=== PATIENT | female | born 1980 | race Caucasian/White ===

== ENCOUNTER → 2018-06-15 16:40 | Observation (INO) ==
[2018-06-15 15:41] LABS: Basophils % 0.3 %; Eosinophils # 0.1 K/mcL (0.0-0.6); Eosinophils % 0.6 %; Hematocrit 35.7 % (35.3-44.9); Hemoglobin 11.4 g/dL (11.5-15.4); Immature Granulocytes % 0.5 % (0-4); Lymphocytes # 1.7 K/mcL (0.6-4.6); Lymphocytes % 16.3 %; Mean Corpuscular HGB Conc 31.9 g/dL (31.6-35.5); Mean Corpuscular Hemoglobin 30.2 pg (28.0-33.3); Mean Corpuscular Volume 94.4 fL (83.0-100.0); Mean Platelet Volume 11.5 fL (9.4-12.4); Monocytes # 0.7 K/mcL (0.0-1.3); Monocytes % 6.7 %; Neutrophils # 7.8 K/mcL (1.6-8.9); Platelet Count 244 K/mcL (140-400); Red Blood Count 3.78 M/mcL (3.82-4.97); Red Cell Distribution Width 13.8 % (11.5-14.5); Segmented Neutrophils % 75.6 %
[2018-06-15 15:55] LABS: Alanine Aminotransferase 11 Units/L (7-52); Aspartate Amino Transferase 11 Units/L (13-39); BUN/Creatinine Ratio 18 (6-26); Blood Urea Nitrogen 12 mg/dL (6-20); Lactate Dehydrogenase 137 Units/L (140-271); Uric Acid 6.8 mg/dL (2.3-7.6); eGFR For Non-African Americans > 60 (> 60)
[2018-06-15 16:04] LABS: Amphetamine Screen,Urine Negative ng/mL (Cutoff=1000); Barbiturate Screen,Urine Negative ng/mL (Cutoff=200); Benzodiazepines Screen,Urine Negative ng/mL (Cutoff=200); Cannabinoid Screen,Urine Negative ng/mL (Cutoff = 50); Cocaine Screen,Urine Negative ng/mL (Cutoff= 300); Creatinine,Urine 168 mg/dL; Opiate Screen,Urine Negative ng/mL (Cutoff=300); Phencyclidine Screen,Urine Negative ng/mL (Cutoff=25); Protein/Creatinine Ratio,Urine 0.08 mg/mg (0.00-0.20)
--- NOTE | 2018-06-15 16:31 | Discharge Summary ---
Date of Encounter: 06/15/18 Time of Encounter: 16:32 - Discharge Diagnosis (1) 37 weeks gestation of Priority: Primary Status: Acute Comments: Follow-up with Dr. Arriola as scheduled Labor precautions discussed Discharge home (2) RUQ abdominal pain Priority: Secondary Status: Acute Comments: Maintains resolved (3) NST (non-stress test) reactive on surveillance Priority: Secondary Status: Acute (4) Vision changes Priority: Secondary Status: Acute Comments: Resolved spontaneously - Discharge Medications Home Medications: Pnv#75/Iron Fum/FA/Om3/Dha/Epa [Daily Combo Pack] 1 tab PO DAILY 03/08/18 [History] Colace 2 pack PO DAILY 06/15/18 [History] Novolin R 44 units SQ BID 06/15/18 [History] Novolog 24 units SQ DAILY 06/15/18 [History] Novolog 26 units SQ DAILY 06/15/18 [History] Allergies/Adverse Reactions: Allergy/AdvReac Type Severity Reaction Status Date / Time No Known Allergies Allergy Verified 03/08/18 00:46 Data Procedures and tests throughout hospitalization: Laboratory Tests 06/15/18 06/15/18 06/15/18 15:24 15:24 15:24 WBC 10.3 RBC 3.78 L Hgb 11.4 L Hct 35.7 MCV 94.4 MCH 30.2 MCHC 31.9 RDW 13.8 Plt Count 244 MPV 11.5 Immature Gran % 0.5 Seg Neutrophils % 75.6 Lymphocytes % 16.3 Monocytes % 6.7 Eosinophils % 0.6 Basophils % 0.3 Neutrophils # 7.8 Lymphocytes # 1.7 Monocytes # 0.7 Eosinophils # 0.1 Basophils # 0.0 BUN 12 Creatinine 0.67 Est GFR ( Amer) > 60 Est GFR (Non-Af Amer) > 60 BUN/Creatinine Ratio 18 Uric Acid 6.8 AST 11 L ALT 11 Lactate Dehydrogenase 137 L Urine Creatinine 168 Protein/Creatinin Ratio 0.08 Urine Total Protein 14 Urine Opiates Screen Negative Ur Barbiturates Screen Negative Ur Phencyclidine Scrn Negative Ur Amphetamines Screen Negative U Benzodiazepines Scrn Negative Urine Cocaine Screen Negative U Marijuana (THC) Screen Negative Ur Drug Screen Interp See Below Hep Bs Antigen 06/15/18 15:24 WBC RBC Hgb Hct MCV MCH MCHC RDW Plt Count MPV Immature Gran % Seg Neutrophils % Lymphocytes % Monocytes % Eosinophils % Basophils % Neutrophils # Lymphocytes # Monocytes # Eosinophils # Basophils # BUN Creatinine Est GFR ( Amer) Est GFR (Non-Af Amer) BUN/Creatinine Ratio Uric Acid AST ALT Lactate Dehydrogenase Urine Creatinine Protein/Creatinin Ratio Urine Total Protein Urine Opiates Screen Ur Barbiturates Screen Ur Phencyclidine Scrn Ur Amphetamines Screen U Benzodiazepines Scrn Urine Cocaine Screen U Marijuana (THC) Screen Ur Drug Screen Interp Hep Bs Antigen Nonreactive Labs on day of discharge: Labs from last 24 hours 06/15/18 06/15/18 06/15/18 15:24 15:24 15:24 WBC 10.3 RBC 3.78 L Hgb 11.4 L Hct 35.7 MCV 94.4 MCH 30.2 MCHC 31.9 RDW 13.8 Plt Count 244 MPV 11.5 Immature Gran % 0.5 Seg Neutrophils % 75.6 Lymphocytes % 16.3 Monocytes % 6.7 Eosinophils % 0.6 Basophils % 0.3 Neutrophils # 7.8 Lymphocytes # 1.7 Monocytes # 0.7 Eosinophils # 0.1 Basophils # 0.0 BUN 12 Creatinine 0.67 Est GFR ( Amer) > 60 Est GFR (Non-Af Amer) > 60 BUN/Creatinine Ratio 18 Uric Acid 6.8 AST 11 L ALT 11 Lactate Dehydrogenase 137 L Urine Creatinine Protein/Creatinin Ratio Urine Total Protein Urine Opiates Screen Ur Barbiturates Screen Ur Phencyclidine Scrn Ur Amphetamines Screen U Benzodiazepines Scrn Urine Cocaine Screen U Marijuana (THC) Screen Ur Drug Screen Interp Hep Bs Antigen Nonreactive 06/15/18 15:24 WBC RBC Hgb Hct MCV MCH MCHC RDW Plt Count MPV Immature Gran % Seg Neutrophils % Lymphocytes % Monocytes % Eosinophils % Basophils % Neutrophils # Lymphocytes # Monocytes # Eosinophils # Basophils # BUN Creatinine Est GFR ( Amer) Est GFR (Non-Af Amer) BUN/Creatinine Ratio Uric Acid AST ALT Lactate Dehydrogenase Urine Creatinine 168 Protein/Creatinin Ratio 0.08 Urine Total Protein 14 Urine Opiates Screen Negative Ur Barbiturates Screen Negative Ur Phencyclidine Scrn Negative Ur Amphetamines Screen Negative U Benzodiazepines Scrn Negative Urine Cocaine Screen Negative U Marijuana (THC) Screen Negative Ur Drug Screen Interp See Below Hep Bs Antigen Date of admission: 06/15/18 14:52 Primary care physician: Dipti Garber Discharging clinician: Pricilla Alexander Anticipated date of discharge: 06/15/18 - Patient Status Disposition: Home, Self-Care Condition: Good Functional capacity at discharge: independent ambulation Overall status at discharge: patient is progressing back to baseline - Discharge Instructions Follow Up With: Dipti Garber MD [Primary Care Provider] - Parker Arriola MD [Partnered Physician] - - Diet and Activity Activity: increase activity as tolerated Diet: regular diet 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 Patient was monitored in labor and delivery for a few hours. All [facility] labs within normal - consult with Dr. Boss and Dr. Arriola. Patient discharged home with instructions for follow-up Time Attestation: Total time spent providing and/or coordinating discharge services: Time Spent: Less than 30 minutes Exam - Constitutional General appearance IM: A&O X 3 - Respiratory Respiratory exam: Present: CTAB - Cardiovascular Cardiovascular exam IM: Present: RRR, +S1, +S2 - GI/Abdominal GI/Abdominal exam IM: normal bowel sounds, no peritoneal signs - Rectal Rectal exam: deferred - Uterine Tone: Firm - Extremities Exam Extremities exam IM: Present: normal capillary refill, normal inspection, radial pulses palpable and symmetrical - Neurological Exam Neurological exam: alert, CN II-XII intact, normal gait, oriented X3, reflexes normal, no focal deficits, strengths equal and symetr throughout - VTE Reasons for not Prescribing Prophylaxis: Treatment not Indicated - Low risk for VTE
== END | disposition home or self-care (01) ==
LOC: 1NENULAB
PROVIDERS: ADMIT Advanced Practice Midwife; ATTEND Advanced Practice Midwife

== ENCOUNTER → 2018-06-16 19:01 | Observation (INO) ==
[2018-06-16 13:40] LABS: Amphetamine Screen,Urine Negative ng/mL (Cutoff=1000); Barbiturate Screen,Urine Negative ng/mL (Cutoff=200); Benzodiazepines Screen,Urine Negative ng/mL (Cutoff=200); Cannabinoid Screen,Urine Negative ng/mL (Cutoff = 50); Cocaine Screen,Urine Negative ng/mL (Cutoff= 300); Opiate Screen,Urine Negative ng/mL (Cutoff=300); Phencyclidine Screen,Urine Negative ng/mL (Cutoff=25)
[2018-06-16 13:43] LABS: Basophils % 0.3 %; Eosinophils # 0.1 K/mcL (0.0-0.6); Eosinophils % 0.7 %; Hematocrit 35.5 % (35.3-44.9); Hemoglobin 11.6 g/dL (11.5-15.4); Immature Granulocytes % 0.6 % (0-4); Lymphocytes % 19.2 %; Mean Corpuscular HGB Conc 32.7 g/dL (31.6-35.5); Mean Corpuscular Hemoglobin 30.6 pg (28.0-33.3); Mean Corpuscular Volume 93.7 fL (83.0-100.0); Mean Platelet Volume 11.7 fL (9.4-12.4); Monocytes # 0.7 K/mcL (0.0-1.3); Monocytes % 6.9 %; Neutrophils # 7.4 K/mcL (1.6-8.9); Platelet Count 237 K/mcL (140-400); Red Blood Count 3.79 M/mcL (3.82-4.97); Segmented Neutrophils % 72.3 %
[2018-06-16 13:51] LABS: Protein/Creatinine Ratio,Urine 0.12 mg/mg (0.00-0.20)
[2018-06-16 13:59] LABS: Alanine Aminotransferase 10 Units/L (7-52); Aspartate Amino Transferase 15 Units/L (13-39); BUN/Creatinine Ratio 19 (6-26); Blood Urea Nitrogen 9 mg/dL (6-20); Lactate Dehydrogenase 175 Units/L (140-271); Uric Acid 6.9 mg/dL (2.3-7.6); eGFR For Non-African Americans > 60 (> 60)
--- NOTE | 2018-06-16 18:40 | Discharge Summary ---
Outpatient Proc Discharge Plan - Plan Prescriptions: Acetaminophen/Butalbital/Caffe [Fioricet] 1 each PO Q6HR PRN #20 tablet PRN Reason: Headache Home Medications: Pnv#75/Iron Fum/FA/Om3/Dha/Epa [Daily Combo Pack] 1 tab PO DAILY 03/08/18 [History] Colace 1 tab PO DAILY 06/15/18 [History] Novolin R 44 units SQ BID 06/15/18 [History] Novolog 24 units SQ DAILY 06/15/18 [History] Novolog 26 units SQ DAILY 06/15/18 [History] Acetaminophen/Butalbital/Caffe [Fioricet] 1 each PO Q6HR PRN #20 tablet 06/16/18 [Rx]
--- NOTE | 2018-06-16 18:44 | OB Labor Progress Note ---
Date of Encounter: 06/16/18 Time of Encounter: 18:42 Labor Progress Note - Subjective Subjective: Pt presents from office still with headache. She has h/o headaches and goes to chiropractor weekly. She has tried tylenol without help. She was in L&D yest with some swelling and vision changes no headache. Her BPs have been normal and her labs were ok. She reports +GFM, no vb or lof. - Vital Signs Vital Signs: BP's normal - Cervix Cervix: 1 60 -2 - Heart Tones Heart Tones: RNST - Labette Labette: irregular uc's - Interventions Interventions: Fioricet, compazine and phenergan - Plan Plan: Pt at 37 weeks EGA with headache. Some improvement with Fioricet. No other evidence of preeclampsia or indications for delivery. Reassuring well being by NST. D/w pt options and will d/c home. Pt to call for worsening of sx's.
[~2018-06-16 19:01] MED LIST: Acetaminophen/Butalbital/CaffeineTABLET PO PRN
== END | disposition home or self-care (01) ==
LOC: 1NENULAB
PROVIDERS: ADMIT Advanced Practice Midwife; ATTEND Advanced Practice Midwife

== ENCOUNTER 2018-06-24 18:45 | Inpatient (IN) ==
--- NOTE | 2018-06-24 18:37 | Anesthesia Evaluation PreOp ---
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 Other Medical History: Diabetes Type II, GERD, Other (MO BMI 51) Anesthesia History: No Prior Anesthetic Complications, Past Anesthesia (c/s Jane, T&A) : Yes Test: Positive Alcohol Use: none Drug use: none Medications and Allergies Pnv#75/Iron Fum/FA/Om3/Dha/Epa [Daily Combo Pack] 1 tab PO DAILY 03/08/18 [History] Colace 1 tab PO DAILY 06/15/18 [History] Novolin R 44 units SQ BID 06/15/18 [History] Novolog 24 units SQ DAILY 06/15/18 [History] Novolog 26 units SQ DAILY 06/15/18 [History] Allergy/AdvReac Type Severity Reaction Status Date / Time No Known Allergies Allergy Verified 06/24/18 18:10 - Meds/Allergy Pre-op Review Medications Reviewed: Yes Allergies Reviewed: Yes Beta Blockers on Current Med List: No Anesthesia Exam see nsg note Height: 5'4" Weight: 135 k NPO (# of Hours): 7 Pain Scale: 2 Pain Scale Used: Numeric (1 - 10) - HEENT Pupil (Motor): Pupils equal Mallampati: II Teeth: Normal Oral Opening: Greater than 3 - JOINT MACHINE OPERATOR LOC: Oriented JOINT MACHINE OPERATOR Motor: Normal RUE, Normal LUE, Normal RLE, Normal LLE, Normal Face JOINT MACHINE OPERATOR Sensory: Normal: RUE, LUE, RLE, LLE, Face - Cardiac Rhythm: Regular Murmur: None - Pulmonary Breath Sounds: bilateral Clear Respiratory Effort: Symmetrical Anesthesia Assess/Plan ASA Score: 3 Level of consciousness: Cooperative Anesthetic Plan: Spinal Autologous Blood: No Monitoring Plan: Standard Monitors Recovery Plan: PACU (risks discussed questions answered consented)
--- NOTE | 2018-06-24 18:39 | OB/GYN History & Physical ---
Date of Encounter: 06/24/18 Time of Encounter: 18:34 Assessment and Plan (1) 38 weeks gestation of Current visit: Yes Status: Acute Pt referred by Dr. Borja in [facility] for delivery after having c/o decreased movement with BPP 4/10. Pt's preg complicated by gestational DM with insulin control and AMA. She has kept good BS control and been followed closely with antepartum testing. Pt with h/o prior c-sec for FTP at 6 cm. This has EFWT 8#13 oz and cervix is unfavorable. D/w pt options and she desires to proceed with . She is aware of operative risks and signed the appropriate consent. (2) Gestational diabetes Current visit: Yes Status: Acute Qualifiers: Gestational diabetes mellitus control: insulin-controlled Trimester: third trimester Qualified Code(s): O24.414 - Gestational diabetes mellitus in , insulin controlled (3) AMA (advanced maternal age) multigravida 35+ Current visit: Yes Status: Acute Qualifiers: Trimester: third trimester Qualified Code(s): O09.523 - Supervision of elderly multigravida, third trimester History of Present Illness Chief complaint: Here for repeat HPI: Ms. Roberto is a 38 year old female female at 38 w 3 d gestation sent from office where she saw [facility] and delivery was advised. Pt's has been com plicated by AMA and A2DM. She has been followed with close antepartum testing with twice weekly NST's and serial growth scans and [facility] visits. She has maintained fair glucoregulation. Today at visit pt c/o decreased movement and BPP was 4/10 so delivery was advised. She has been evaluated several times over last couple of weeks with sx's of preeclampsia including intermittent BP elevation and headaches. Her labs have elias normal. These are all ok today. She reports irregular uc's, no vb or lof. Past Med Surg Social Fam HX - Past Medical History Source: patient, old records reviewed Medical history: no medical history Additional medical history: gestational Psychiatric history: anxiety - Past Surgical History Surgical History: , cholecystectomy Additional surgical history: tonsillectomy - Social History Smoking Status: Never smoker Smokeless Tobacco Status: No Alcohol use: none Drug use: none - Family History Mother Adopted: No Family Member Ethnicity: Non- Living Status: Still Living Hx Family Cardiac Disorders: No Hx Family Respiratory Disorders: No Hx Family Cancer: No Hx Family GI Disorders: No Hx Family Endocrine Disorder: Yes (hypothyroid) Hx Family Neuromuscular Disorders: No Hx Family Neurologic Disorders: No Hx Family HEENT Disorders: No Hx Family Autoimmune Disorders: No Obstetrical History - Pregnancies : 2 Medications and Allergies Pnv#75/Iron Fum/FA/Om3/Dha/Epa [Daily Combo Pack] 1 tab PO DAILY 03/08/18 [History] Colace 1 tab PO DAILY 06/15/18 [History] Novolin R 44 units SQ BID 06/15/18 [History] Novolog 24 units SQ DAILY 06/15/18 [History] Novolog 26 units SQ DAILY 06/15/18 [History] Allergy/AdvReac Type Severity Reaction Status Date / Time No Known Allergies Allergy Verified 06/24/18 18:10 Exam - Constitutional Constitutional: well developed, well nourished, obese - HEENT HEENT: EOMI, PERRL - Neck Neck exam: full ROM - Lungs Respiratory exam: CTAB - Cardiovascular Cardiovascular exam: RRR - Abdomen Abdomen: Present: gravid, non tender - Extremities Deep Tendon Reflex Grade: 2+ Normal - Cervix Dilation: 1 Effacement: 50 Station: -2 Results All other labs normal. - VTE Reasons for not Prescribing Prophylaxis: Treatment not Indicated - Low risk for VTE
[2018-06-24 18:40] LABS: Basophils % 0.3 %; Eosinophils # 0.1 K/mcL (0.0-0.6); Eosinophils % 0.8 %; Hematocrit 33.5 % (35.3-44.9); Hemoglobin 10.8 g/dL (11.5-15.4); Immature Granulocytes % 0.6 % (0-4); Lymphocytes # 1.8 K/mcL (0.6-4.6); Lymphocytes % 16.5 %; Mean Corpuscular HGB Conc 32.2 g/dL (31.6-35.5); Mean Corpuscular Hemoglobin 30.3 pg (28.0-33.3); Mean Corpuscular Volume 94.1 fL (83.0-100.0); Mean Platelet Volume 11.6 fL (9.4-12.4); Monocytes # 0.8 K/mcL (0.0-1.3); Monocytes % 7.6 %; Neutrophils # 8.1 K/mcL (1.6-8.9); Platelet Count 225 K/mcL (140-400); Red Blood Count 3.56 M/mcL (3.82-4.97); Red Cell Distribution Width 13.5 % (11.5-14.5); Segmented Neutrophils % 74.2 %
[2018-06-24 18:41] LABS: Amphetamine Screen,Urine Negative ng/mL (Cutoff=1000); Barbiturate Screen,Urine Negative ng/mL (Cutoff=200); Benzodiazepines Screen,Urine Negative ng/mL (Cutoff=200); Cannabinoid Screen,Urine Negative ng/mL (Cutoff = 50); Cocaine Screen,Urine Negative ng/mL (Cutoff= 300); Opiate Screen,Urine Negative ng/mL (Cutoff=300); Phencyclidine Screen,Urine Negative ng/mL (Cutoff=25)
[~2018-06-24 18:45] MED LIST changes: +*HR* FentaNYL (PF) 100 MCG/2 ML VIAL ONE; +*HR* Morphine Sulfate/PF 10 MG/10 ML AMPUL ONE; +*HR* Oxytocin 10 UNIT/ML VIAL IM ONE; -Acetaminophen/Butalbital/CaffeineTABLET PO PRN; +CeFAZolin Syr 3,000MG/30 ML 3,000 MG/30 ML SYRINGE IVPB ONE; +Famotidine 20 MG/2 ML VIAL IVP ONE; +Lidocaine -MPF 2% 5 ML VIAL ONE; +Metoclopramide 10 MG/2 ML VIAL IVP ONE; +Ringers Solution, Lactated 1,000 ML IVC ONE; +Ringers Solution, Lactated 1,000 ML ONE
[2018-06-24] MEDS ORDERED: Oxytocin 20 units/ LR 1000 mL 20 UNIT/1,000 ML BAG IVC ONE (19:27)
--- NOTE | 2018-06-24 20:00 | Anesthesia Procedures ---
Date of Encounter: 06/24/18 Time of Encounter: 19:58 Procedures: Anesthesia - Epidural/Spinal Patient ID/Chart reviewed: Yes Patient examined: Yes OB Eval: Gestational age: 38 OB Eval: : 2 OB Eval: Hx Para: 1 OB Eval: Dilated at (cm): 2 OB Eval: Contractions: Non-stressed pattern Consent Obtained: Yes Supplemental Oxygen: None/Room Air Site Prep: Aseptic Technique, Sterile prep and drape, 0.5% Chlorhexidine/Alcohol Patient position: upright Local Anesthetic: Lidocaine 1% (3) Amount of Local Anesthetic used: 3 Interspace Used: L2-L3 Loss of Resistance (VAUGHN): No Blood: No CSF: Yes Paresthesia: No Spinal Needle Gauge: 25 Spinal Dose: marcaine 12, duramorph 0.2mg, febtanyl 10 mcg Procedure: aseptic, nicholas well, effective Vitals + FHT's: 130/80 77 fht 134
[2018-06-24] MEDS ORDERED: *HR* Promethazine 25 MG/ML VIAL IVP PRN (20:24)
[2018-06-24] MEDS ORDERED: Acetaminophen IV 1,000 MG/100 ML INFUS..BTL IVPB ONE (20:24)
[2018-06-24] MEDS ORDERED: *HR* OxyCODONE Immed Rel 5 MG TABLET PO PRN (20:24)
[2018-06-24] MEDS ORDERED: *HR* FentaNYL (PF) 100 MCG/2 ML VIAL IVP PRN (20:24)
[2018-06-24] MEDS ORDERED: Dextrose Gel 15 GM/37.5 ML TUBE PO PRN ×2 (20:55)
[2018-06-24] MEDS ORDERED: *HR* Dextrose 50 % in Water (Syg) 50 ML SYRINGE IVP PRN (20:55)
[2018-06-24] MEDS ORDERED: D5% in Water 1,000 ML IVC PRN (20:55)
--- NOTE | 2018-06-24 21:02 | OB/GYN Procedure Note ---
Section - Date of procedure: 06/24/18 Preop diagnosis: desires repeat , other (Gest DM, BPP 11/25, AMA) Post-op diagnosis: same Procedure: section, repeat low transverse Surgeon: Parker Mansfield Blood Loss: 500 Was there an events and promotions assistant present: No Anesthesia Type: Spinal section complications: none Disposition: PACU Specimens: Placenta - Infant (s) Infant A Infant Delivery Date: 06/24/18 Infant Delivery Time: 20:01 Presentation: vertex Gender: Female Viability: Viable Pounds: 8 Ounces: 7 at 1 minute: 8 at 5 minutes: 9 Shoulder Dystocia: not encountered Specimens collected: cord blood Placenta: spontaneous Cord: 3 umbilical vessels - Narrative Narrative: Since 38 of 2 para 1 female at 38 3/7 weeks gestation concave inserted quadrant gestational diabetes, advanced maternal age in history of prior section. She was seen in office today for a growth scan by maternal medicine was found to have biophysical profile of 4 out of 10 which complained of decreased movement Dr. Borja lysed patient be delivered. Patient had a history of prior section weight is expected be approximate pounds 13 ounces and her cervix was unfavorable therefore patient declined attempted trial of labor after section. Patient was aware operative risks and signed appropriate consent. Description procedure: Patient was taken operating room where spinal anesthesia was administered. She is prepped draped in usual sterile fashion bladder was drained of clear urine with a Mcdowell catheter. Scalpel was used to make Pfannenstiel skin incision was sharply take down the rectus fascia. Fascia incised midline fascial incision was extended bilaterally. Plan is developed and rectus muscle rectus fascia superior and distally rectus muscles divided midline peritoneum was entered sharply and bladder blade was placed and bladder flap was developed and lower uterine segment. There were some thin adhesions twin the bladder and lower uterine segment these were sharply taken down. Scalpel was used to make a low transverse uterine incision this was extended bluntly bilaterally. Membranes were ruptured clear fluid. was delivered from vertex presentation. Cord was clamped and cut and was handed nurse personnel who were in attendance. Placenta was delivered manually without difficulty. Uterine cavity was massaged free of all residual tissue. Uterus was closed 0 Vicryl in running lock stitch. Hemostasis was ensured. Irrigation was performed. Fascia was closed with oh loop PDS. Deep subcutaneous tissue was closed with oh plain catgut suture. Skin edges reapproximated with 4-0 Vicryl. All sponge counts counts are correct patient was taken recovery room good condition.
[2018-06-24] MEDS ORDERED: Sennosides 8.6 MG TABLET PO PRN (23:20)
[2018-06-24] MEDS ORDERED: Metoclopramide 10 MG/2 ML VIAL IVP PRN (23:20)
[2018-06-24] MEDS ORDERED: Oxytocin 20 units/ LR 1000 mL 20 UNIT/1,000 ML BAG IVC SCH (23:20)
[2018-06-24] MEDS ORDERED: Simethicone 80 MG TAB.CHEW PO PRN (23:20)
[2018-06-24] MEDS ORDERED: Ondansetron 4 MG/2 ML VIAL IVP PRN (23:20)
[2018-06-24] MEDS ORDERED: 0.9 % Sodium Chloride 1,000 ML IVC SCH (23:20)
[2018-06-25 05:48] LABS: Basophils % 0.2 %; Eosinophils % 0.2 %; Hematocrit 30.7 % (35.3-44.9); Hemoglobin 9.9 g/dL (11.5-15.4); Immature Granulocytes % 0.4 % (0-4); Lymphocytes # 1.9 K/mcL (0.6-4.6); Lymphocytes % 12.7 %; Mean Corpuscular HGB Conc 32.2 g/dL (31.6-35.5); Mean Corpuscular Hemoglobin 30.1 pg (28.0-33.3); Mean Corpuscular Volume 93.3 fL (83.0-100.0); Mean Platelet Volume 11.4 fL (9.4-12.4); Monocytes # 0.9 K/mcL (0.0-1.3); Monocytes % 6.2 %; Neutrophils # 12.2 K/mcL (1.6-8.9); Platelet Count 206 K/mcL (140-400); Red Blood Count 3.29 M/mcL (3.82-4.97); Red Cell Distribution Width 13.7 % (11.5-14.5); Segmented Neutrophils % 80.3 %
[2018-06-25] MEDS ORDERED: Insulin LISPRO 300 UNITS/3 ML VIAL SQ SCH (07:30)
--- NOTE | 2018-06-25 08:43 | OB/GYN Progress Note ---
Date of Encounter: 06/25/18 Time of Encounter: 08:42 - Assessment and Plan (1) Status post repeat low transverse section Current Visit: Yes Status: Acute S/P repeat LT day 1 Delivered by repeat LT after presenting from [facility] office where she had BPP 4/10 and felt decreased movement Pain well controlled Not yet ambulating, denies flatus or BM. Mcdowell just removed. Good appetite Light lochia Mood is appropriate female 8 lb 7 oz 8/9 doing well Anticipate D/C tomorrow (2) 38 weeks gestation of Current Visit: Yes Status: Acute 38 y/o female, now at who delivered at 38 weeks + 3 days Delivered female, 8lb 7oz with 8/9 (3) Gestational diabetes Current Visit: Yes Status: Acute Gestational DM controlled with insulin Glucose 66 at last check Qualifiers: Gestational diabetes mellitus control: insulin-controlled Trimester: third trimester Qualified Code(s): O24.414 - Gestational diabetes mellitus in , insulin controlled (4) anemia Current Visit: Yes Status: Acute Hgb 9.9, Hct 30.7 Currently on ferrous sulfate Subjective - Subjective Principal diagnosis: S/P repeat LT Interval history: 38 y/o female s/p repeat LT day 1. Delivered at 38 + 2 GA. complicated by gestational dm on insulin as well as advanced maternal age. States that she is doing well today, pain is well controlled, not yet ambulating, voiding, no BM or flatus. Vaginal bleeding is light. She is breast feeding a healthy female . Mood is appropriate. Denies nausea, vomiting, fever, chills, chest pain or shortness of breath, denies calf tenderness. Patient reports: appetite normal, pain well controlled, no voiding normally, no dizzy ambulation, no ambulating normally [place]: doing well Objective - Vital Signs Latest vital signs: Vital Signs Temp Pulse Resp BP Pulse Ox 06/25/18 03:30 98.3 F 82 14 142/92 96 06/25/18 02:15 98.3 F 82 14 131/75 96 06/25/18 01:15 98.6 F 70 14 160/82 94 06/24/18 23:45 97.3 F L 63 14 130/83 93 06/24/18 23:15 98.2 F 74 14 151/88 93 Intake and Output 06/24/18 06/25/18 06/25/18 23:59 07:59 15:59 Output Total 450 / 450 Balance -450 / -450 Output: Catheter 450 / 450 Other: Weight 135.8 kg 129.6 kg Patient Weight 06/25/18 23:59 Weight 129.6 kg - Exam Lungs: bilateral: normal Chest: Normal S1, Normal S2 Extremities: Present: edema (trace pedel edema) Abdomen: Present: normal appearance, soft (normal bowel sounds) Incision: Present: normal, dry, intact Uterus: Present: normal, firm Fundal Height: 0 (at umbilicus) - Labs Labs: Laboratory Results - last 24 hr 06/24/18 06/24/18 06/24/18 18:05 18:05 18:44 WBC 10.9 RBC 3.56 L Hgb 10.8 L Hct 33.5 L MCV 94.1 MCH 30.3 MCHC 32.2 RDW 13.5 Plt Count 225 MPV 11.6 Immature Gran % 0.6 Seg Neutrophils % 74.2 Lymphocytes % 16.5 Monocytes % 7.6 Eosinophils % 0.8 Basophils % 0.3 Neutrophils # 8.1 Lymphocytes # 1.8 Monocytes # 0.8 Eosinophils # 0.1 Basophils # 0.0 POC Glucose 66 L Urine Opiates Screen Negative Ur Barbiturates Screen Negative Ur Phencyclidine Scrn Negative Ur Amphetamines Screen Negative U Benzodiazepines Scrn Negative Urine Cocaine Screen Negative U Marijuana (THC) Screen Negative Ur Drug Screen Interp See Below 06/25/18 05:33 WBC 15.2 H RBC 3.29 L Hgb 9.9 L Hct 30.7 L MCV 93.3 MCH 30.1 MCHC 32.2 RDW 13.7 Plt Count 206 MPV 11.4 Immature Gran % 0.4 Seg Neutrophils % 80.3 Lymphocytes % 12.7 Monocytes % 6.2 Eosinophils % 0.2 Basophils % 0.2 Neutrophils # 12.2 H Lymphocytes # 1.9 Monocytes # 0.9 Eosinophils # 0.0 Basophils # 0.0 POC Glucose Urine Opiates Screen Ur Barbiturates Screen Ur Phencyclidine Scrn Ur Amphetamines Screen U Benzodiazepines Scrn Urine Cocaine Screen U Marijuana (THC) Screen Ur Drug Screen Interp
[2018-06-25] MEDS: Ibuprofen 600 MG TABLET PO PRN ×2 (10:05→22:17)
[2018-06-25] MEDS: Prenatal Vit/FA 1 EACH TABLET PO SCH (10:06)
[2018-06-26] MEDS: *HR* OxyCODONE/APAP 5/325 TABLET PO PRN ×4 (02:07→20:11)
[2018-06-26] MEDS: Ibuprofen 600 MG TABLET PO PRN ×2 (05:48→23:27)
[2018-06-26] MEDS: Prenatal Vit/FA 1 EACH TABLET PO SCH (08:06)
--- NOTE | 2018-06-26 10:42 | OB/GYN Progress Note ---
Date of Encounter: 06/26/18 Time of Encounter: 10:41 - Assessment and Plan (1) Status post repeat low transverse section Current Visit: Yes Status: Acute S/P repeat LT day 2 Meeting day 2 milestones [place] female 8 lb 7 oz 8/9, having hypoglycemic episodes most likely secondary to maternal gestational diabetes with insulin Will continue to monitor blood pressure, most likely elevated secondary to pain as she has been frequently up and out of bed to feed Anticipate D/C tomorrow (2) 38 weeks gestation of Current Visit: Yes Status: Acute 38 y/o female, now at who delivered at 38 weeks + 3 days Delivered female, 8lb 7oz with 8/9 (3) Gestational diabetes Current Visit: Yes Status: Acute Gestational DM controlled with insulin Continue to monitor blood glucose, last check measured 107 Will need glucose tolerance test at 6 weeks post Qualifiers: Gestational diabetes mellitus control: insulin-controlled Trimester: third trimester Qualified Code(s): O24.414 - Gestational diabetes mellitus in , insulin controlled (4) anemia Current Visit: Yes Status: Acute Hgb 9.9, Hct 30.7 Currently on ferrous sulfate Subjective - Subjective Principal diagnosis: s/p repeat LT Interval history: Status post repeat low transverse day 2 Patient doing well Pain controlled Ambulating well, normal appetite Voiding and has passed flatus Lochia is light Mood is appropriate Denies nausea, vomiting, fever, chills, chest pain, shortness of breath of calf pain Patient reports: appetite normal, voiding normally, pain well controlled, ambulating normally [place]: doing well (Having hypoglycemia, breast feeding but supplementing with formula) Objective - Vital Signs Latest vital signs: Vital Signs Temp Pulse Pulse Resp BP Pulse Ox 06/26/18 07:45 98.1 F 97 14 152/87 97 06/25/18 20:10 99.5 F 112 20 148/73 06/25/18 16:45 16 06/25/18 16:40 98.2 F 101 12 162/82 96 06/25/18 12:42 97.9 F 90 90 16 135/83 98 Intake and Output 06/25/18 06/26/18 06/26/18 23:59 07:59 15:59 Intake Total 120 / 120 Output Total 300 / 300 Balance -300 / -300 120 / 120 Intake: Oral 120 / 120 Output: Urine 300 / 300 Other: Meal Breakfast Percent of Meal Consumed 10% Weight 129.954 kg Blood Glucose* 113 Patient Weight 06/26/18 23:59 Weight 129.954 kg - Exam Lungs: bilateral: normal Chest: Normal S1, Normal S2 Extremities: Present: normal, edema Abdomen: Present: normal appearance, soft. Absent: tenderness Incision: Present: normal, dry, intact Uterus: Present: normal, firm Fundal Height: 0 (at umbilicus) - Labs Labs: Laboratory Results - last 24 hr 06/25/18 06/25/18 06/25/18 11:57 16:36 22:56 POC Glucose 94 118 H 113 H
[2018-06-27] MEDS: *HR* OxyCODONE/APAP 5/325 TABLET PO PRN (03:31)
--- NOTE | 2018-06-27 06:34 | Discharge Summary ---
Date of Encounter: 06/27/18 Time of Encounter: 06:35 - Discharge Diagnosis (1) 38 weeks gestation of Priority: Primary Status: Acute Comments: s/p delivery (2) Gestational diabetes Priority: Secondary Status: Acute Comments: BS were good. Will hold on any further BS check at this time. will need 75 hr GCT Qualifiers: Gestational diabetes mellitus control: insulin-controlled Trimester: third trimester Qualified Code(s): O24.414 - Gestational diabetes mellitus in , insulin controlled (3) AMA (advanced maternal age) multigravida 35+ Priority: Secondary Status: Acute Qualifiers: Trimester: third trimester Qualified Code(s): O09.523 - Supervision of elderly multigravida, third trimester (4) Status post repeat low transverse section Priority: Primary Status: Acute Comments: Doing well, will d/c home. - Discharge Medications Prescriptions: Ibuprofen [Motrin] 600 mg PO Q6HR PRN #40 tablet PRN Reason: Cramping OxyCODONE/APAP 5/325 [Percocet 5/325 MG] 1 each PO Q4H PRN 7 Days #28 tablet PRN Reason: Moderate pain 4-6 Home Medications: Pnv#75/Iron Fum/FA/Om3/Dha/Epa [Daily Combo Pack] 1 tab PO DAILY 02/16 10/05 [History] Colace 1 tab PO DAILY 06/15/18 [History] Novolin R 44 units SQ BID 06/15/18 [History] Novolog 24 units SQ DAILY 06/15/18 [History] Novolog 26 units SQ DAILY 06/15/18 [History] Ibuprofen [Motrin] 600 mg PO Q6HR PRN #40 tablet 06/27/18 [Rx] OxyCODONE/APAP 5/325 [Percocet 5/325 MG] 1 each PO Q4H PRN 7 Days #28 tablet 06/27/18 [Rx] Allergies/Adverse Reactions: Allergy/AdvReac Type Severity Reaction Status Date / Time No Known Allergies Allergy Verified 06/24/18 18:10 Data Procedures and tests throughout hospitalization: Laboratory Tests 06/24/18 06/24/18 06/24/18 18:05 18:05 18:44 WBC 10.9 RBC 3.56 L Hgb 10.8 L Hct 33.5 L MCV 94.1 MCH 30.3 MCHC 32.2 RDW 13.5 Plt Count 225 MPV 11.6 Immature Gran % 0.6 Seg Neutrophils % 74.2 Lymphocytes % 16.5 Monocytes % 7.6 Eosinophils % 0.8 Basophils % 0.3 Neutrophils # 8.1 Lymphocytes # 1.8 Monocytes # 0.8 Eosinophils # 0.1 Basophils # 0.0 POC Glucose 66 L Urine Opiates Screen Negative Ur Barbiturates Screen Negative Ur Phencyclidine Scrn Negative Ur Amphetamines Screen Negative U Benzodiazepines Scrn Negative Urine Cocaine Screen Negative U Marijuana (THC) Screen Negative Ur Drug Screen Interp See Below 06/25/18 06/25/18 06/25/18 05:33 11:57 16:36 WBC 15.2 H RBC 3.29 L Hgb 9.9 L Hct 30.7 L MCV 93.3 MCH 30.1 MCHC 32.2 RDW 13.7 Plt Count 206 MPV 11.4 Immature Gran % 0.4 Seg Neutrophils % 80.3 Lymphocytes % 12.7 Monocytes % 6.2 Eosinophils % 0.2 Basophils % 0.2 Neutrophils # 12.2 H Lymphocytes # 1.9 Monocytes # 0.9 Eosinophils # 0.0 Basophils # 0.0 POC Glucose 94 118 H Urine Opiates Screen Ur Barbiturates Screen Ur Phencyclidine Scrn Ur Amphetamines Screen U Benzodiazepines Scrn Urine Cocaine Screen U Marijuana (THC) Screen Ur Drug Screen Interp 06/25/18 06/26/18 22:56 09:39 WBC RBC Hgb Hct MCV MCH MCHC RDW Plt Count MPV Immature Gran % Seg Neutrophils % Lymphocytes % Monocytes % Eosinophils % Basophils % Neutrophils # Lymphocytes # Monocytes # Eosinophils # Basophils # POC Glucose 113 H 107 H Urine Opiates Screen Ur Barbiturates Screen Ur Phencyclidine Scrn Ur Amphetamines Screen U Benzodiazepines Scrn Urine Cocaine Screen U Marijuana (THC) Screen Ur Drug Screen Interp Labs on day of discharge: Labs from last 24 hours 06/26/18 09:39 POC Glucose 107 H - Impressions Pt doing well. Reg diet without n/v. Ambulating. 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: Total time spent providing and/or coordinating discharge services: Exam - Constitutional Vitals: Temp Pulse Resp BP Pulse Ox 97.4 F L 90 16 135/84 100 06/26/18 20:11 06/26/18 20:11 06/26/18 20:11 06/26/18 20:11 06/26/18 20:11 General appearance IM: A&O X 3 - Respiratory Respiratory exam: Present: CTAB - Cardiovascular Cardiovascular exam IM: Present: RRR - GI/Abdominal GI/Abdominal exam IM: normal bowel sounds Incision: normal, dressed - External exam: ecchymosis - Extremities Exam Extremities exam IM: Present: full ROM - Neurological Exam Neurological exam: oriented X3 - VTE Reasons for not Prescribing Prophylaxis: Treatment not Indicated - Low risk for VTE Documentation of Mechanical Device: Intermittent pneumatic compression device
[2018-06-27 08:34] VITALS: BP 144/85
[2018-06-27] MEDS: Prenatal Vit/FA 1 EACH TABLET PO SCH (09:39)
[2018-06-27] MEDS: Ibuprofen 600 MG TABLET PO PRN (10:02)
== END 2018-06-27 10:15 | disposition home or self-care (01) | DRG 788 ==
LOC: 1NENULAB → 1NENUOBS 23:02
PROVIDERS: ADMIT Obstetrics & Gynecology; ATTEND Obstetrics & Gynecology